=== PATIENT | male | born 1950 | race Caucasian/White ===

== ENCOUNTER → 2016-12-19 | Outpatient (CLI) | payer MEDICARE, OTHER ==
[~2016-12-19] MED LIST: ASPIRIN81 MG PO; BREO ELLIPTA 11 EACH INH; CLOPIDOGREL75 MG PO; DIGOX125 MCG PO; DITROPAN 5 MG TA5 MG PO; ELIQUIS5 MG PO; ENTRESTO PO; FENOFIBRATE160 MG PO; FIBERCON625 MG PO; FLOMAX0.4 MG PO; IMDUR ER TAB 3030 MG PO; LEVAQUIN500 MG PO; LEVOTHYROXINE25 MCG PO; METOPROLOL TART25 MG PO; PLAVIX 75 MG TA75 MG PO; PRAVACHOL80 MG PO; PRAVASTATIN SOD80 MG PO; RANITIDINE HCL300 MG PO; SYNTHROID 25 M25 MCG PO; TAMSULOSIN HCL0.4 MG PO; TYLENOL W/CODEIN1 E1 PO
== END ==
LOC: HEART 5 07:59
DX: I20.9 Angina pectoris, unspecified (principal); I42.0 Dilated cardiomyopathy; I51.9 Heart disease, unspecified
CPT/HCPCS: 78452; A9502; J2785

== ENCOUNTER → 2017-01-13 | Outpatient (CLI) | payer MEDICARE, OTHER ==
[2017-01-13 10:02] LABS: HEMOGLOBIN 14.1 gm/dl (14.0-17.5); RED BLOOD COUNT 4.54 M/UL (4.20-5.50); WHITE BLOOD COUNT 9.1 K/UL (4.5-11.0)
[2017-01-13 10:15] LABS: BUN/CREATININE RATIO 23 (0-10)
== END ==
LOC: LAB 09:17
PROVIDERS: Internal Medicine Cardiovascular Disease
DX: I50.22 Chronic systolic (congestive) heart failure (principal); I25.5 Ischemic cardiomyopathy; I25.119 Atherosclerotic heart disease of native coronary artery with unspecified angina pectoris; I48.91 Unspecified atrial fibrillation; R94.39 Abnormal result of other cardiovascular function study; J42 Unspecified chronic bronchitis
CPT/HCPCS: 36415; 71020; 80048; 85025

== ENCOUNTER 2017-01-17 06:56 | Outpatient (CLI) | payer MEDICARE, OTHER ==
[~2017-01-17] VITALS: Ht 182.9 cm; Wt 79.0 kg
[2017-01-17] MEDS ORDERED: ELIQUIS5 MG PO (07:38)
[2017-01-17] MEDS ORDERED: ENTRESTO PO (07:40)
[2017-01-17] MEDS ORDERED: RANITIDINE HCL300 MG PO (07:40)
[2017-01-17] MEDS ORDERED: PRAVACHOL80 MG PO (07:41)
[2017-01-17] MEDS ORDERED: SYNTHROID 25 M25 MCG PO (07:41)
[2017-01-17] MEDS ORDERED: DIGOX125 MCG PO (07:42)
[2017-01-17] MEDS ORDERED: DITROPAN 5 MG TA5 MG PO (07:43)
[2017-01-17] MEDS ORDERED: ASPIRIN81 MG PO (07:44)
[2017-01-17] MEDS ORDERED: METOPROLOL TART25 MG PO (07:45)
[2017-01-17] MEDS ORDERED: IMDUR ER TAB 3030 MG PO (07:45)
[2017-01-17] MEDS ORDERED: FENOFIBRATE160 MG PO (07:46)
[2017-01-17] MEDS ORDERED: FLOMAX0.4 MG PO (07:46)
[2017-01-17] MEDS ORDERED: FIBERCON625 MG PO (07:47)
[2017-01-17] MEDS ORDERED: BREO ELLIPTA 11 EACH INH (07:47)
[2017-01-17 20:50] LABS: HEMOGLOBIN 13.5 gm/dl (14.0-17.5); RED BLOOD COUNT 4.3 M/UL (4.20-5.50); WHITE BLOOD COUNT 8.5 K/UL (4.5-11.0)
[2017-01-17 21:10] LABS: BUN/CREATININE RATIO 16 (0-10)
[2017-01-18 06:05] LABS: HEMOGLOBIN 13.4 gm/dl (14.0-17.5); RED BLOOD COUNT 4.31 M/UL (4.20-5.50); WHITE BLOOD COUNT 10.1 K/UL (4.5-11.0)
[2017-01-18 06:38] LABS: BUN/CREATININE RATIO 14 (0-10)
[2017-01-18] MEDS ORDERED: PLAVIX 75 MG TA75 MG PO (11:24)
[2017-07-08] MEDS ORDERED: ELIQUIS5 MG PO (10:28)
[2017-07-08] MEDS ORDERED: DIGOX125 MCG PO (10:28)
[2017-07-08] MEDS ORDERED: BREO ELLIPTA 11 EACH INH (10:29)
[2017-07-08] MEDS ORDERED: RANITIDINE HCL300 MG PO (10:29)
[2017-07-08] MEDS ORDERED: FENOFIBRATE160 MG PO (10:30)
[2017-07-08] MEDS ORDERED: CLOPIDOGREL75 MG PO (10:31)
[2017-07-08] MEDS ORDERED: ENTRESTO PO (10:35)
[2017-07-08] MEDS ORDERED: DITROPAN 5 MG TA5 MG PO (10:36)
[2017-07-08] MEDS ORDERED: METOPROLOL TART25 MG PO (10:36)
[2017-07-08] MEDS ORDERED: LEVOTHYROXINE25 MCG PO (10:37)
[2017-07-08] MEDS ORDERED: TAMSULOSIN HCL0.4 MG PO (10:37)
[2017-07-08] MEDS ORDERED: PRAVASTATIN SOD80 MG PO (10:37)
[2017-07-09] MEDS ORDERED: LEVAQUIN500 MG PO (08:44)
[2017-07-09] MEDS ORDERED: TYLENOL W/CODEIN1 E1 PO (08:44)
== END 2017-01-18 13:24 | disposition home or self-care (01) ==
LOC: CATH 06:56 → PROG CARE 16:38 → CATH 01-18 13:24
PROVIDERS: Internal Medicine Cardiovascular Disease
DX: I25.118 Atherosclerotic heart disease of native coronary artery with other forms of angina pectoris (principal); R94.39 Abnormal result of other cardiovascular function study; I11.0 Hypertensive heart disease with heart failure; I50.22 Chronic systolic (congestive) heart failure; I48.2 Chronic atrial fibrillation; I25.10 Atherosclerotic heart disease of native coronary artery without angina pectoris; E78.5 Hyperlipidemia, unspecified; I25.2 Old myocardial infarction; I25.5 Ischemic cardiomyopathy; Z95.5 Presence of coronary angioplasty implant and graft; Z79.02 Long term (current) use of antithrombotics/antiplatelets; Z79.82 Long term (current) use of aspirin; Z79.899 Other long term (current) drug therapy
CPT/HCPCS: 36415; 80048; 82550; 82553; 84484; 85027; 85347; C1725; C1769; C1874; C1887; C1894; C9600; J0153; J0461; J0583; J1644; J2250; J7030; Q0163; Q9963

== ENCOUNTER 2017-02-08 18:21 | Observation (INO) | payer MEDICARE, OTHER ==
[~2017-02-08] VITALS: Ht 167.6 cm; Wt 76.9 kg
[~2017-02-08 18:21] MED LIST changes: -CLOPIDOGREL75 MG PO; -LEVAQUIN500 MG PO; -LEVOTHYROXINE25 MCG PO; -PRAVASTATIN SOD80 MG PO; -TAMSULOSIN HCL0.4 MG PO; -TYLENOL W/CODEIN1 E1 PO
[2017-02-08 19:44] LABS: HEMOGLOBIN 13.9 gm/dl (14.0-17.5); RED BLOOD COUNT 4.46 M/UL (4.20-5.50); WHITE BLOOD COUNT 12.9 K/UL (4.5-11.0)
[2017-02-10 04:30] LABS: HEMOGLOBIN 12.4 gm/dl (14.0-17.5); WHITE BLOOD COUNT 9.8 K/UL (4.5-11.0)
[2017-02-10 04:36] LABS: RED BLOOD COUNT 4.01 M/UL (4.20-5.50)
[2017-02-10 04:54] LABS: BUN/CREATININE RATIO 16 (0-10)
[2017-07-08] MEDS ORDERED: DIGOX125 MCG PO (10:28)
[2017-07-08] MEDS ORDERED: ELIQUIS5 MG PO (10:28)
[2017-07-08] MEDS ORDERED: BREO ELLIPTA 11 EACH INH (10:29)
[2017-07-08] MEDS ORDERED: RANITIDINE HCL300 MG PO (10:29)
[2017-07-08] MEDS ORDERED: FENOFIBRATE160 MG PO (10:30)
[2017-07-08] MEDS ORDERED: CLOPIDOGREL75 MG PO (10:31)
[2017-07-08] MEDS ORDERED: ENTRESTO PO (10:35)
[2017-07-08] MEDS ORDERED: METOPROLOL TART25 MG PO (10:36)
[2017-07-08] MEDS ORDERED: DITROPAN 5 MG TA5 MG PO (10:36)
[2017-07-08] MEDS ORDERED: LEVOTHYROXINE25 MCG PO (10:37)
[2017-07-08] MEDS ORDERED: PRAVASTATIN SOD80 MG PO (10:37)
[2017-07-08] MEDS ORDERED: TAMSULOSIN HCL0.4 MG PO (10:37)
[2017-07-09] MEDS ORDERED: TYLENOL W/CODEIN1 E1 PO (08:44)
[2017-07-09] MEDS ORDERED: LEVAQUIN500 MG PO (08:44)
== END 2017-02-10 18:05 | disposition home or self-care (01) ==
LOC: ER1 18:21 → ZEROF 23:18 → PROG CARE 23:18 → ZEROF 23:18 → PROG CARE 02-09 18:10
PROVIDERS: Emergency Medicine; Internal Medicine; ADMIT Family Medicine
DX: R55 Syncope and collapse (principal); I48.2 Chronic atrial fibrillation; I25.10 Atherosclerotic heart disease of native coronary artery without angina pectoris; K21.9 Gastro-esophageal reflux disease without esophagitis; R12 Heartburn; J44.9 Chronic obstructive pulmonary disease, unspecified; I10 Essential (primary) hypertension; E78.5 Hyperlipidemia, unspecified; E03.9 Hypothyroidism, unspecified; N40.0 Benign prostatic hyperplasia without lower urinary tract symptoms; I25.5 Ischemic cardiomyopathy; F17.210 Nicotine dependence, cigarettes, uncomplicated; Z95.5 Presence of coronary angioplasty implant and graft; Z79.01 Long term (current) use of anticoagulants; Z79.82 Long term (current) use of aspirin; Z79.899 Other long term (current) drug therapy
CPT/HCPCS: 36415; 70450; 71010; 72125; 73110; 73130; 80053; 80162; 82550; 82553; 83690; 83874; 83880; 84484; 85025; 85027; 85610; 85730; 93005; 94640; 94664; 99284; G0378; J2405